=== PATIENT | male | born 1985 | race Two or more races ===

== ENCOUNTER 2021-02-02 11:44 | Emergency (ER) | payer OTHER, SELFPAY ==
[2021-02-02 12:55] VITALS: BP 123/77; PULSE 86; RESP 21; TEMP 37.1; O2SAT 99; BMI 21.9
--- NOTE | 2021-02-02 13:11 | HMH.EDUTC ---
[facility] [place] Disposition Clinical Impression: Strep throat Disposition: Home, Self-Care Condition on Discharge: Good Instructions: DI for Strep Throat Additional Instructions: Start antibiotics today be sure to take it as ordered with the full length of time although you should start feeling better in 24-48 hours. Change toothbrush and toothpaste 24-48 hours after starting antibiotics Tylenol or Motrin as needed for fever or pain Encourage fluids, water, Gatorade, Powerade, try cold fluids, popsicles, ice cream will make it feel better You are contagious for 24 hours. Avoid kissing anyone, no eating or drinking after anyone. You are contagious. Follow-up the ER for new or worsening symptoms or no noticeable improvement over the next 24-48 hours. Follow-up with PCP this week. Prescriptions: Azithromycin [Zithromax 250mg tab] 250 mg PO DIRECTED #6 tab Prescription Printed Referrals: Provider,Referral, MD [Primary Care Provider] - Time of Disposition: 13:20 Medical Decision Making - Lasha Inquiry Pt receiving controlled substance: No Vital Signs: 02/02/21 12:55 Temperature 98.7 F Temperature Source Tympanic Pulse Rate [Apical] 86 Respiratory Rate 21 Blood Pressure [Right Arm] 123/77 Blood Pressure Mean [Right Arm] 92 Blood Pressure Source [Right Arm] Automatic Cuff Blood Pressure Position [Right Arm] Supine 02 Sat by Pulse Oximetry 99 Oxygen Delivery Method Room Air - Lab Data Lab Results 02/02/21 12:55: Strep Scn Rapid Clinic Negative Orders (Tests/Meds): ORDERS Category Date Time Status Strep Screen Confirmation Stat Micro 02/02/21 12:55 Received [facility] [place] HPI - General Chief complaint: Urgent Treatment Center Stated complaint: sore throat Time Seen by Provider: 02/02/21 13:12 Mode of Arrival: Ambulatory Source of Information: Patient Limitations: No Limitations Description of Symptoms (Recalled from Triage Doc. by RN): sore throat, can't swallow, headache, backache HEENT Symptoms (Recalled from RN notes): Yes Resp Symptoms (Recalled from RN notes): No Skin Symptoms (Recalled from RN notes): No MS Symptoms (Recalled from RN notes): No Functional Status (Recalled from RN notes): na - History of Present Illness Provider Complaint: 35 yr old male presents for sore throat,rudolph,pain with swallowing and ear pain - Related Data Previous Rx's Medication Instructions Recorded Azithromycin [Zithromax 250mg 250 mg PO DIRECTED #6 tab 02/02/21 tab] - Worker's Comp Is this a Worker's Comp case?: No [facility] History - Hepatitis A Screen Drug use history?: No High risk sexual behaviors?: No History of sexually transmitted infection?: No Currently employed?: No Childcare worker?: No Do you have indoor plumbing?: Yes Do you have electricity?: Yes Attestation statement:: This patient has been screened for Hepatitis A risk factors. I have reviewed the patient's past medical history: Yes ROS Obtained: Yes Systems reviewed as appropriate & no additional complaints - Constitutional Constitutional: Reports system reviewed and no additional complaints, except as docu, Denies fatigue, Reports fever(s) - Eyes Eyes: Reports system reviewed and no additional complaints, except as docu, Denies loss of peripheral vision - ENT Ears, Nose, Mouth, and Throat: Reports system reviewed and no additional complaints, except as docu, Reports headache(s), Denies sinus pain, Reports sore throat - Cardiovascular Cardiovascular: Reports system reviewed and no additional complaints, except as docu, Denies chest pain - Respiratory Respiratory: Reports system reviewed and no additional complaints, except as docu, Denies change in phlegm color - Gastrointestinal Gastrointestingal: Reports: system reviewed and no additional complaints, except as docu. Denies: nausea, vomiting - Genitourinary Male Genitourinary: Reports system reviewed and no additional complaints, except as docu - Musc
[2021-02-02 13:12] LABS: UTC Strep Screen (Rapid) Negative (Negative)
[2021-02-02 13:25] VITALS: BP 123/77; PULSE 86; RESP 21; TEMP 37.1
== END 2021-02-02 13:26 | disposition home or self-care (01) ==
PROVIDERS: Emergency Provider Nurse Practitioner Family
DX: J02.0 Streptococcal pharyngitis (principal)
CPT/HCPCS: 87880; 99202; G0463